=== PATIENT | female | born 1995 | race Caucasian/White ===

== ENCOUNTER → 2019-04-27 | Outpatient (CLI) | payer OTHER ==
--- NOTE | 2019-04-27 14:13 | RADIOLOGY REPORT (SQ) ---
EXAM DESCRIPTION: HIP LEFT AP/LATERAL COMPLETED DATE/TIME: 04/27/2019 1:51 pm REASON FOR STUDY: LEFT HIP PAIN M25.552 PAIN IN LEFT HIP COMPARISON: None. NUMBER OF VIEWS: Two views. TECHNIQUE: AP pelvis and additional frog-leg view of the left hip. LIMITATIONS: None. FINDINGS: MINERALIZATION: Normal. LEFT HIP: No fracture or dislocation. No worrisome bone lesions. RIGHT HIP: No fracture or dislocation. No worrisome bone lesions. PUBIS AND ISCHIUM: No fracture. PELVIS: No fracture. SACRUM: No fracture or dislocation. No worrisome bone lesions. LOWER LUMBAR SPINE: No fracture or dislocation. No worrisome bone lesions. No significant disc disea se. SOFT TISSUES: No findings. OTHER: No other significant finding. IMPRESSION: NEGATIVE STUDY OF THE LEFT HIP AND PELVIS. NO RADIOGRAPHIC EVIDENCE OF ACUTE INJURY. TECHNICAL DOCUMENTATION: JOB ID: [id number] [employer]- All Rights Reserved Reading location - IP/workstation name: [email or web address]
== END ==
LOC: OD 13:36
PROVIDERS: ATTEND Physician Assistant
DX: M25.552 Pain in left hip (principal)

== ENCOUNTER → 2019-06-24 | Day surgery (SDC) | payer OTHER ==
[~2019-06-24] MED LIST: BUPIVACAINE HCL 0.5 % INJ/PF 30 ML SDV ONE; METHYLPREDNISOLONE ACETATE INJ 80 MG/1 ML VIAL ONE
--- NOTE | 2019-06-24 13:39 | RADIOLOGY REPORT (SQ) ---
EXAM DESCRIPTION: INJECT/ASPIR HIP/SHLDR/KNEE; FLUORO/NEEDLE PLACEMENT COMPLETED DATE/TIME: 06/24/2019 12:57 pm REASON FOR STUDY: (M25.552)PAIN IN LEFT HIP COMPARISON: None. EXAM PARAMETERS: LIMITATIONS: None. OPERATING PHYSICIAN/PA: Artie FLUOROSCOPY TIME: 8 seconds NUMBER OF IMAGES: 1 JOINT: Hip LATERALITY: Left APPROACH: Anterior ANESTHESIA: 7 mL 1% Lidocaine. LOCALIZING CONTRAST TYPE AND AMOUNT: 1mL Omnipaque 300 Steroid: 80mL Depo-Medrol PRE-INJECTION PAIN LEVEL: 3 POST-INJECTION PAIN LEVEL: 0 CROSS-SECTIONAL IMAGING MODALITY: None OTHER: none PROCEDURE: Procedure, risks, benefits and alternatives explained to patient who then gave written co nsent. The patient was then moved to the fluoroscopic room, and placed on the table in appropriate po sition. The left hipmarked. Time-out called. Correct marking verified. Entry site marked using fluoroscopic g uidance. Site prepped and draped using sterile technique. Local anesthesia achieved using injection. Hypoderm ic needle introduced into the joint space under direct fluoroscopic visualization. Non-ionic contrast instilled to confirm intra-articular position. Steroid injected. Needle removed and entry site cov ered with sterile bandage. No immediate complications noted. FINDINGS: No significant pathology noted on images during and post-injection. IMPRESSION: SUCCESSFUL NEEDLE PLACEMENT AND INJECTION OF left hip. Therapeutic injection of steroid . NO SIGNIFICANT IMAGING FINDINGS. COMMENT: Quality ID #[id number]: Final reports for procedures using fluoroscopy that document radiation exp osure indices, or exposure time and number of fluorographic images (if radiation exposure indices are not available) TECHNICAL DOCUMENTATION: JOB ID: [id number] [employer]- All Rights Reserved Reading location - IP/workstation name: [email or web address]
--- NOTE | 2019-06-24 13:39 | RADIOLOGY REPORT (SQ) ---
EXAM DESCRIPTION: INJECT/ASPIR HIP/SHLDR/KNEE; FLUORO/NEEDLE PLACEMENT COMPLETED DATE/TIME: 06/24/2019 12:57 pm REASON FOR STUDY: (M25.552)PAIN IN LEFT HIP COMPARISON: None. EXAM PARAMETERS: LIMITATIONS: None. OPERATING PHYSICIAN/PA: Artie FLUOROSCOPY TIME: 8 seconds NUMBER OF IMAGES: 1 JOINT: Hip LATERALITY: Left APPROACH: Anterior ANESTHESIA: 7 mL 1% Lidocaine. LOCALIZING CONTRAST TYPE AND AMOUNT: 1mL Omnipaque 300 Steroid: 80mL Depo-Medrol PRE-INJECTION PAIN LEVEL: 3 POST-INJECTION PAIN LEVEL: 0 CROSS-SECTIONAL IMAGING MODALITY: None OTHER: none PROCEDURE: Procedure, risks, benefits and alternatives explained to patient who then gave written co nsent. The patient was then moved to the fluoroscopic room, and placed on the table in appropriate po sition. The left hipmarked. Time-out called. Correct marking verified. Entry site marked using fluoroscopic g uidance. Site prepped and draped using sterile technique. Local anesthesia achieved using injection. Hypoderm ic needle introduced into the joint space under direct fluoroscopic visualization. Non-ionic contrast instilled to confirm intra-articular position. Steroid injected. Needle removed and entry site cov ered with sterile bandage. No immediate complications noted. FINDINGS: No significant pathology noted on images during and post-injection. IMPRESSION: SUCCESSFUL NEEDLE PLACEMENT AND INJECTION OF left hip. Therapeutic injection of steroid . NO SIGNIFICANT IMAGING FINDINGS. COMMENT: Quality ID #[id number]: Final reports for procedures using fluoroscopy that document radiation exp osure indices, or exposure time and number of fluorographic images (if radiation exposure indices are not available) TECHNICAL DOCUMENTATION: JOB ID: [id number] [employer]- All Rights Reserved Reading location - IP/workstation name: [email or web address]
== END ==
LOC: RAD 12:19
PROVIDERS: ATTEND Orthopaedic Surgery
DX: M25.552 Pain in left hip (principal)
CPT/HCPCS: 20610; 77002; J3490; J1040